=== PATIENT | male | born 1955 | race African-American/Black ===

== ENCOUNTER 2024-05-22 18:12 | Emergency (ER) | payer OTHER, MEDICARE ==
[~2024-05-22] VITALS: Ht 177.8 cm; Wt 87.0 kg
[2024-05-22 18:27] VITALS: BP 154/68; RESP 16; TEMP 97.9; O2SAT 98
[2024-05-22 18:30] VITALS: PULSE 74; O2SAT 100
== END 2024-05-22 23:01 | disposition home or self-care (01) ==
LOC: ER 18:12
DX: B34.9 Viral infection, unspecified (principal); Z01.84 Encounter for antibody response examination; E03.9 Hypothyroidism, unspecified; I10 Essential (primary) hypertension; M19.90 Unspecified osteoarthritis, unspecified site; Z96.649 Presence of unspecified artificial hip joint; Z20.822 Contact with and (suspected) exposure to COVID-19
CPT/HCPCS: 71045; 99284; 87426; Z7610

== ENCOUNTER 2025-03-15 20:18 | Emergency (ER) | payer MEDICARE, MEDICAID ==
[~2025-03-15] VITALS: Ht 172.7 cm; Wt 90.5 kg
[2025-03-15 20:30] VITALS: O2SAT 99
[2025-03-15 21:08] LABS: CLARITY URINE CLEAR (CLEAR); COLOR URINE YELLOW (YELLOW); GLUCOSE URINE NEGATIVE (NEGATIVE); KETONES URINE 1+ (NEGATIVE); LEUKOCYTE ESTERASE URINE NEGATIVE (NEGATIVE); NITRITE URINE NEGATIVE (NEGATIVE); OCCULT BLOOD URINE NEGATIVE (NEGATIVE); PH URINE 5.5 (4.5-8.0); PROTEIN URINE NEGATIVE (NEGATIVE); SPECIFIC GRAVITY URINE 1.027 (1.005-1.030); UROBILINOGEN URINE 0.2 E.U./dL (0.2-1.0)
[2025-03-15 21:27] LABS: BASOPHILS % 0.8 % (0.0-2.0); EOSINOPHILS % 2.6 % (0.0-5.0); HEMATOCRIT. 39.6 % (42.0-52.0); HEMOGLOBIN. 12.5 g/dL (14.0-18.0); LYMPHOCYTES % 32.5 % (20.0-50.0); MEAN PLATELET VOLUME 8.2 fl (7.4-10.4); MONOCYTES % 10.0 % (2.0-8.0); NEUTROPHILS % 54.1 % (40.0-76.0); PLATELET 297 x1000/uL (130-400); RED BLOOD CELL COUNT 4.65 mill/uL (4.7-6.1); RED CELL DISTRIBUTION WIDTH 14.3 % (11.6-14.6)
[2025-03-15 21:37] LABS: CREATININE 1.8 mg/dL (0.6-1.3); UREA NITROGEN BLOOD 16.0 mg/dL (9-23)
[2025-03-15 22:58] LABS: INR 1.0
[2025-03-15 23:25] LABS: TROPONIN I HIGH SENSITIVITY 52 ng/L (3.0-53)
[2025-03-15] MEDS: ACETAMINOPHEN 325MG TABLET PO ONE (23:30)
[2025-03-16 00:44] LABS: TROPONIN I HIGH SENSITIVITY 52 ng/L (3.0-53)
[2025-03-16] MEDS ORDERED: ACET-2708 MT (00:54)
[2025-03-16 00:56] VITALS: BP 114/75; PULSE 73; RESP 18; TEMP 36.8; O2SAT 99
[2025-03-16] MEDS: PANTOPRAZOLE 40MG DR TABLET PO ONE (01:04)
[2025-03-16 02:11] LABS: ASPARTATE AMINOTRANSFERASE 29 IU/L (<34); BILIRUBIN DIRECT 0.2 mg/dL (<=3.0); BILIRUBIN TOTAL 0.6 mg/dL (0.1-1.0); PROTEIN TOTAL 6.7 g/dL (6.0-8.3)
== END 2025-03-16 01:07 | disposition home or self-care (01) ==
LOC: ER 20:18
DX: R10.12 Left upper quadrant pain (principal); E03.9 Hypothyroidism, unspecified; E11.9 Type 2 diabetes mellitus without complications; I11.0 Hypertensive heart disease with heart failure; I50.9 Heart failure, unspecified; M19.90 Unspecified osteoarthritis, unspecified site; Z96.642 Presence of left artificial hip joint
CPT/HCPCS: 36415; 71045; 74176; 80048; 80076; 81003; 83880; 84484; 85025; 93005; 99285